=== PATIENT | male | born 1950 | race American Indian/Alaskan Native ===

== ENCOUNTER → 2017-04-09 | Outpatient (CLI) | payer MEDICARE ==
[~2017-04-09] MED LIST: ASCO10004 PO; ASPI-496 PO; PANT40TA5 PO; SIMV10TA3 PO
== END | disposition home or self-care (01) ==
LOC: CFH 15:25
PROVIDERS: ATTEND Genetic Counselor, MS
DX: Z12.2 Encounter for screening for malignant neoplasm of respiratory organs (principal); F17.210 Nicotine dependence, cigarettes, uncomplicated
CPT/HCPCS: G0297

== ENCOUNTER 2018-07-19 21:32 | Inpatient (IN) | payer MEDICARE, OTHER ==
[~2018-07-19] VITALS: Ht 180.3 cm; Wt 101.1 kg
[~2018-07-19 21:32] MED LIST changes: +AZIT500T5 PO; +CEFD300C37 PO; +NICO-487 TD; +OMEG1CAP23 PO
[2018-07-19 22:10] LABS: BASOPHILS # (AUTO) 0.03 x10^3/uL (0-0.1); BASOPHILS % (AUTO) 0 % (0-1); EOSINOPHILS # (AUTO) 0.16 x10^3/uL (0-0.4); EOSINOPHILS % (AUTO) 1 % (1-7); LYMPHOCYTES # (AUTO) 1.31 x10^3/uL (1-3.4); LYMPHOCYTES % (AUTO) 9 % (22-44); MD NO; MEAN CORPUSCULAR HEMOGLOBIN 30.7 pg (27.5-34.5); MEAN CORPUSCULAR HGB CONC 33.9 g/dL (33.2-36.2); MEAN CORPUSCULAR VOLUME 90.7 fL (81-97); MEAN PLATELET VOLUME 7.3 fL (7.4-10.4); MONOCYTES # (AUTO) 0.84 x10^3/uL (0.2-0.8); MONOCYTES % (AUTO) 6 % (2-9); NEUTROPHILS # (AUTO) 11.63 x10^3/uL (1.8-6.8); NEUTROPHILS % (AUTO) 83 % (42-75); PLATELET COUNT 262 x10^3/uL (130-400); RED BLOOD COUNT 4.87 x10^6/uL (4.38-5.82); RED CELL DISTRIBUTION WIDTH 14.6 % (9.4-14.8)
[2018-07-19 22:21] LABS: INTERNATIONAL NORMALIZED RATIO 1.07 (0.93-1.1)
[2018-07-19 22:30] LABS: TROPONIN I < 0.015 ng/mL (0.000-0.045)
[2018-07-20] VITALS (7 sets, daily range): BP systolic 110–162; BP diastolic 69–95
[2018-07-20] MEDS ORDERED: ONDANSETRON 4 MG TABLET PO PRN (01:00)
[2018-07-20] MEDS ORDERED: ACETAMINOPHEN 325 MG TABLET PO PRN (01:00)
[2018-07-20] MEDS ORDERED: DOCUSATE 100 MG CAPSULE PO PRN (01:00)
[2018-07-20 04:30] LABS: TROPONIN I < 0.015 ng/mL (0.000-0.045)
[2018-07-20 07:37] LABS: MD NO; RED BLOOD COUNT 5.11 x10^6/uL (4.38-5.82)
[2018-07-20] MEDS: INSULIN LISPRO 100 UNITS/ML, PEN SQ-INSULIN SCH ×2 (07:42→12:02)
[2018-07-20 07:48] LABS: ALANINE AMINOTRANSFERASE 31 U/L (12-78); ALBUMIN 3.2 g/dL (3.4-5.0); ANION GAP 12 mmol/L (5-15); CALCIUM 8.5 mg/dL (8.5-10.1); CHLORIDE 110 mmol/L (98-107); CREATININE 0.82 mg/dL (0.7-1.3)
[2018-07-20 07:51] LABS: ALKALINE PHOSPHATASE 124 U/L (45-117); BILIRUBIN,TOTAL 0.3 mg/dL (0.2-1.0); TOTAL PROTEIN 6.4 g/dL (6.4-8.2)
[2018-07-20 08:02] LABS: BASOPHILS # (AUTO) 0.04 x10^3/uL (0-0.1); BASOPHILS % (AUTO) 0 % (0-1); EOSINOPHILS # (AUTO) 0.22 x10^3/uL (0-0.4); EOSINOPHILS % (AUTO) 2 % (1-7); LYMPHOCYTES # (AUTO) 1.87 x10^3/uL (1-3.4); LYMPHOCYTES % (AUTO) 17 % (22-44); MEAN CORPUSCULAR HGB CONC 32.9 g/dL (33.2-36.2); MEAN CORPUSCULAR VOLUME 91.1 fL (81-97); MONOCYTES # (AUTO) 0.82 x10^3/uL (0.2-0.8); MONOCYTES % (AUTO) 8 % (2-9); NEUTROPHILS # (AUTO) 8.01 x10^3/uL (1.8-6.8); NEUTROPHILS % (AUTO) 73 % (42-75); PLATELET COUNT 259 x10^3/uL (130-400); RED CELL DISTRIBUTION WIDTH 14.8 % (9.4-14.8)
[2018-07-20] MEDS ORDERED: REGADENOSON 0.4 MG/5 ML SYRINGE ONE (08:47)
[2018-07-20] MEDS: ASPIRIN 81 MG TABLET CHEW PO/NG SCH (11:00)
[2018-07-20] MEDS: NICOTINE 21 MG/24 HR PATCH.TD24 TD SCH (11:00)
[2018-07-20 11:33] LABS: TROPONIN I < 0.015 ng/mL (0.000-0.045)
[2018-07-20 11:33] LABS: MICROSCOPIC NOT IND
[2018-07-20 11:40] LABS: CULTURE INDICATED? NO
[2018-07-20] MEDS ORDERED: GADOBUTROL 10 MMOL/10 ML PFS ONE (12:44)
[2018-07-20] MEDS ORDERED: SIMVASTATIN 10 MG TABLET PO SCH (21:00)
[2018-07-21 02:00] VITALS: BP 122/76
[2018-07-21 06:02] LABS: CHOL/HDL RATIO 3.7; LDL/HDL RATIO 1.9 (0.5-3.0)
[2018-07-21 07:05] VITALS: BP 134/82
[2018-07-21] MEDS: ASPIRIN 81 MG TABLET CHEW PO/NG SCH (08:27)
[2018-07-21] MEDS: NICOTINE 21 MG/24 HR PATCH.TD24 TD SCH (09:35)
[2018-07-21] MEDS ORDERED: KETOROLAC 30 MG/1 ML IVPush PRN (10:30)
[2018-07-21] MEDS ORDERED: ATOR-2 PO (12:19)
[2018-07-21] MEDS ORDERED: ASPI-621 PO (12:19)
[2018-07-21] MEDS ORDERED: CLOP75TA PO (12:19)
[2018-07-21] MEDS ORDERED: CLOPIDOGREL 75 MG TABLET PO SCH (12:30)
[2018-07-21] MEDS ORDERED: ATORVASTATIN 80 MG TABLET PO SCH (21:00)
== END 2018-07-21 14:00 | disposition home or self-care (01) | DRG 302 ==
LOC: ED 23:14 → EDIP 23:15 → 5SO 07-20 00:02 → DCLOUNGE 07-21 13:30
PROVIDERS: ADMIT Hospitalist; ATTEND Hospitalist
DX: I25.110 Atherosclerotic heart disease of native coronary artery with unstable angina pectoris (principal); J96.21 Acute and chronic respiratory failure with hypoxia; G45.9 Transient cerebral ischemic attack, unspecified; F17.203 Nicotine dependence unspecified, with withdrawal; R07.89 Other chest pain; D72.829 Elevated white blood cell count, unspecified; E78.00 Pure hypercholesterolemia, unspecified; E78.5 Hyperlipidemia, unspecified; F17.210 Nicotine dependence, cigarettes, uncomplicated; R20.1 Hypoesthesia of skin; R00.2 Palpitations; I10 Essential (primary) hypertension; E66.9 Obesity, unspecified; I25.2 Old myocardial infarction; I44.0 Atrioventricular block, first degree; J44.9 Chronic obstructive pulmonary disease, unspecified; R29.701 NIHSS score 1; Z80.8 Family history of malignant neoplasm of other organs or systems; Z82.49 Family history of ischemic heart disease and other diseases of the circulatory system; Z86.73 Personal history of transient ischemic attack (TIA), and cerebral infarction without residual deficits; Z90.49 Acquired absence of other specified parts of digestive tract; Z68.31 Body mass index [BMI] 31.0-31.9, adult
CPT/HCPCS: 36415; 70450; 70496; 70498; 70553; 71045; 78452; 80047; 80053; 80061; 81003; 82962; 84484; 85025; 85610; 85730; 93005; 93017; 93306; A9585; G0378; J2785; 92523-GN; A9502; C9898

== ENCOUNTER → 2020-05-11 | Outpatient (CLI) | payer MEDICARE, BC ==
[~2020-05-11] MED LIST changes: +ASPI81TA45 PO; +ATOR-2 PO; +AZIT500T10 PO; -AZIT500T5 PO; +CLOP75TA PO; +SIMV10TA18 PO; -SIMV10TA3 PO
== END | disposition home or self-care (01) ==
LOC: CFH 11:47
PROVIDERS: ATTEND Genetic Counselor, MS
DX: Z12.2 Encounter for screening for malignant neoplasm of respiratory organs (principal); J43.2 Centrilobular emphysema; R91.1 Solitary pulmonary nodule; I25.10 Atherosclerotic heart disease of native coronary artery without angina pectoris; I71.2 Thoracic aortic aneurysm, without rupture; Z87.891 Personal history of nicotine dependence
CPT/HCPCS: G0297

== ENCOUNTER → 2020-07-22 | Outpatient (CLI) | payer MEDICARE ==
[~2020-07-22] MED LIST changes: +ASCO100018 PO; -ASCO10004 PO; -PANT40TA5 PO; +PANT40TA6 PO
== END | disposition home or self-care (01) ==
LOC: CFH 15:15
PROVIDERS: ATTEND Genetic Counselor, MS
DX: K80.20 Calculus of gallbladder without cholecystitis without obstruction (principal); M16.0 Bilateral primary osteoarthritis of hip
CPT/HCPCS: 74176

== ENCOUNTER 2020-08-14 19:49 | Emergency (ER) | payer MEDICARE ==
[~2020-08-14] VITALS: Ht 180.3 cm; Wt 95.4 kg
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
--- NOTE | 2020-08-14 21:48 | NUR ---
ERP AT BEDSIDE FOR ASSESSMENT, PT AMB TO RESTROOM NO ASSIST REQ
[2020-08-14] MEDS ORDERED: ASPIRIN 81 MG TABLET CHEW ONE (21:57)
[2020-08-14] MEDS ORDERED: ASPIRIN 81 MG TABLET CHEW PO ONE (22:00)
[2020-08-14 22:31] LABS: BASOPHILS % (AUTO) 1 % (0-1); EOSINOPHILS % (AUTO) 3 % (1-7); LYMPHOCYTES % (AUTO) 12 % (22-44); MEAN CORPUSCULAR HEMOGLOBIN 31.3 pg (27.5-34.5); MEAN CORPUSCULAR HGB CONC 33.7 g/dL (33.2-36.2); MEAN PLATELET VOLUME 7.6 fL (7.4-10.4); MONOCYTES % (AUTO) 8 % (2-9); NEUTROPHILS % (AUTO) 77 % (42-75); PLATELET COUNT 231 x10^3/uL (130-400); RED BLOOD COUNT 5.14 x10^6/uL (4.38-5.82); RED CELL DISTRIBUTION WIDTH 14.4 % (9.4-14.8)
[2020-08-14 22:37] LABS: MD NO
[2020-08-14 22:38] LABS: ALBUMIN 3.8 g/dL (3.4-5.0); ANION GAP 6 mmol/L (5-15); CALCIUM 8.8 mg/dL (8.5-10.1); CHLORIDE 107 mmol/L (98-107)
[2020-08-14 22:42] LABS: TROPONIN I < 0.015 ng/mL (0.000-0.045)
--- NOTE | 2020-08-14 23:01 | NUR ---
MT: DAUGHTER (JEANE) WOULD LIKE TO BE UPDATED WITH POC WHEN KNOWN -[phone]
[2020-08-14] MEDS ORDERED: AZITHROMYCIN 250 MG TABLET ONE (23:23)
[2020-08-14 23:25] VITALS: BP 124/84
--- NOTE | 2020-08-14 23:29 | NUR ---
Patient/Caregiver given discharge instructions and they have confirmed that they understand the instructions. Patient ambulatory with steady gait.
[2020-08-14] MEDS ORDERED: AZITHROMYCIN 500 MG TABLET PO ONE (23:30)
== END 2020-08-14 23:42 | disposition home or self-care (01) ==
LOC: ED 22:04
DX: J18.9 Pneumonia, unspecified organism (principal); Z20.828 Contact with and (suspected) exposure to other viral communicable diseases; R07.89 Other chest pain; I44.4 Left anterior fascicular block; I21.9 Acute myocardial infarction, unspecified; E78.5 Hyperlipidemia, unspecified; I10 Essential (primary) hypertension; J44.9 Chronic obstructive pulmonary disease, unspecified; I25.2 Old myocardial infarction; F17.210 Nicotine dependence, cigarettes, uncomplicated
CPT/HCPCS: 36415; 71045; 80048; 82040; 84484; 85025; 85379; 87635; 93005; 99285; 99406